=== PATIENT | female | born 1990 ===

== ENCOUNTER 2017-04-05 19:41 | Emergency (ER) | payer MEDICAID, OTHER ==
[~2017-04-05] VITALS: Ht 165.1 cm; Wt 70.0 kg
[2017-04-05 20:00] VITALS: BP 125/72; PULSE 72; RESP 20; O2SAT 99
[2017-04-05 21:04] LABS: BASOPHILS % (AUTO) 0.3 % (0-3); EOSINOPHILS % (AUTO) 1.2 % (0-5); Mean Corpuscular Hemoglobin 26.5 pg (27.0-35.0); Mean Corpuscular Volume 86.8 fL (81-100); Platelet Count 561 bil/L (150-400)
--- NOTE | 2017-04-06 06:30 | PCM.EDPN ---
ED Note Date of Service April 06, 2017 This patient left without being seen a couple hours ago and then came back to the emergency room at our request when her lab results came back. The resident mistakenly did all of the documentation on the previous K number. Please see that chart for full details. Tru Jordan MD April 06, 2017 06:30
== END 2017-04-05 22:40 | disposition left against medical advice (07) ==
LOC: SED 19:41
DX: Z53.20 Procedure and treatment not carried out because of patient's decision for unspecified reasons (principal)

== ENCOUNTER 2017-04-05 23:29 | Emergency (ER) | payer MEDICAID, OTHER ==
[~2017-04-05] VITALS: Ht 165.1 cm; Wt 70.0 kg
[2017-04-05 23:32] VITALS: BP 139/81; PULSE 102; RESP 16; O2SAT 99
[2017-04-06] MEDS ORDERED: 0.9% Sodium Chloride 1,000 ML IV SCH (00:15)
--- NOTE | 2017-04-06 00:32 | ED.REPORT ---
HPI-Fever Date of Service April 06, 2017 ED Provider: Tru Jordan MD Patient is a 26-year-old female with history of delivery [address] Ramos [place], who presented to [facility] Emergency Department complaining of fever and incision site erythema. Patient reports the onset of fever 1 week ago. She presented to [place] emergency department 6 days ago with fever of 100F and incision site swelling and redness. She was diagnosed with hematoma and sent home. A few days later, she went to see her [employer], . He gave her a prescription for Augmentin. She has been taking it twice daily for 2 days now. Patient reports worsening of her symptoms, she states she continues to have fever, pain, swelling and redness of incision site. She denies headache, chest pain, shortness of breath, nausea, vomiting, diarrhea, dysuria, weakness. Nursing Notes Stated Complaint: INCISION PAIN Chief Complaint: General Complaint Nursing Notes Reviewed: Yes Allergies: Coded Allergies: No Known Allergies (Verified Allergy, Unknown, 03/13/15) No Active Prescriptions or Reported Meds General Time Seen by MD: 23:50 Chief Complaint Other (infected incision) Past Medical History Past Medical History No history of diabetes mellitus, hypertension, or CHF Past Surgical History Reports: Smoking History Never Smoker Social History Alcohol Use: Denies alcohol use Drug Use: In recovery Ambulatory Status Independent Review of Systems A comprehensive review of systems has been conducted with the patient and was found to be negative except what is mentioned in the history of present illness. Physical Exam Initial Vital Signs Vital Signs (First) Date Time Temp Pulse Resp B/P Pulse Ox O2 Delivery O2 Flow Rate FiO2 04/05/17 23:32 37.4 102 16 139/81 99 Room Air Initial VS: Reviewed, Vital signs abnormal Head / Eyes: Atraumatic, Normocephalic, PERRL ENT: Mucous membranes moist, Conjunctiva normal, No scleral icterus Extremities: Vascular intact, Neuro intact, No swelling, No tenderness Psychiatric: Mood/affect normal, Behavior normal, Normal thought content General/Constitutional: Awake, Alert, No acute distress, Well appearing, Well developed, Not toxic appearing Neck: Atraumatic, Supple Respiratory / Chest: Breath sounds NL, No rales, No rhonchi, No wheezing Cardiovascular: Heart rate NL, Regular rhythm Heart Rate / Rhythm: Positive: Tachycardia Skin: No rash, Warm, Dry (well perfused) Tenderness/Guarding/Rebound: Positive: Tender diffuse, Tender suprapubic (C- section incisional site with erythema and hematoma measuring about 7 cm) Trauma - General: Positive: Hematoma (at the infected incision site) Interpretation & Diagnostics Lab Results Interpretation Result Diagram: 04/06/17 0040 Test 04/06/17 00:40 04/06/17 01:11 White Blood Count 13.0th/mm3 (3.8-10.1) Red Blood Count 2.75mil/mm3 (3.90-5.20) Hemoglobin 7.4g/dL (12.0-15.6) Hematocrit 23.8% (35.0-46.0) Mean Corpuscular Volume 86.5fL (81-100) Mean Corpuscular Hemoglobin 26.9pg (27.0-35.0) Mean Corpuscular Hemoglobin Concent 31.1% (32.0-37.0) Red Cell Distribution Width 15.8% (12.3-15.4) Platelet Count 586bil/L (150-400) Neutrophils (%) (Auto) 81.4% (40-74) Lymphocytes (%) (Auto) 12.3% (14-46) Monocytes (%) (Auto) 5.0% (4-12) Eosinophils (%) (Auto) 0.8% (0-5) Basophils (%) (Auto) 0.2% (0-3) Lactic Acid Level 0.7mmol/L (0.4-2.0) Body Fluid Source Peritoneal fluid Body Fluid Color Red (Clear) Body Fluid Appearance Turbid Body Fluid WBC 858610/mm3 Body Fluid RBC 5977291/mm3 Body Fluid Polynuclear WBCs 92% Body Fluid Lymphocytes 1% Body Fluid Monocytes 8% Body Fluid Eosinophils 0% Body Fluid Basophils 0% Lab Results Interpretation: Elevated white blood count Re-Eval/Medical Decision Med Decision/Clinical Course In summary this is 26-year-old female status post lower segmental transverse section on 03/24/2017 by [place], who presented to [facility] Emergency Department with fever and infected section incision site. Patient has been seen in emergency department in [place] 1 week ago and diagnosed with hematoma. She has also been seen by Dr. Ramos and was put on Augmentin 2 days ago. Patient continued to have fever and worsening of erythema around incision site. Today patient presents to [facility] ER with temperature 37.4C, heart rate of 102. Blood work is significant for white blood count of 13.9, hemoglobin of 7.6 and hematocrit 24.9. Patient's hemoglobin was 8 on day one. Normal saline, IV started. Tylenol, PO administered. Incisional hematoma drained and sample sent for culture. Blood cultures pending. Zocyn, 3.375 mg IV started. 0530: Dr. Tru Jordan: This patient was discussed with Dr. Perry, who is on- call for Dr. Ramos. The patient will go there by private vehicle and be evaluated in the emergency room by Dr. Perry. COBRA was completed. Patient was discharged in improved condition. Counseled Regarding: Diagnosis, Lab results, Need for follow-up, When/why to return to ED Discharge & Departure Impression: Primary Impression: Wound infection after surgery Encounter type: initial encounter Qualified Code: T81.4XXA - Infection following a procedure, initial encounter Additional Impression: Status post Disposition: Transfer, Acute Care Facility Discharge Condition All VS Reviewed: Yes Condition: Improved Additional Instructions: Go directly from here to [facility]. Dr. Perry will see you there and decide what needs to be done to treat this wound infection. Time is important so do not go home and do not stop along the way. Referrals: Yohan Ramos MD (PCP) EDSupervising Provider for APC: Tru Jordan MD Attending Statement The patient was seen and examined together with Dr. Melva Souza and I agree with the history, exam and plan as outlined in the note above. Melva Souza DO April 06, 2017 00:32 Tru Jordan MD April 06, 2017 05:31
[2017-04-06 00:57] LABS: BASOPHILS % (AUTO) 0.2 % (0-3); EOSINOPHILS % (AUTO) 0.8 % (0-5); Mean Corpuscular Hemoglobin 26.9 pg (27.0-35.0); Mean Corpuscular Volume 86.5 fL (81-100); NEUTROPHILS % (AUTO) 81.4 % (40-74); Platelet Count 586 bil/L (150-400)
[2017-04-06] MEDS ORDERED: HYDROmorphone 0.5 mg/0.5 mL iSecure Syringe IVPUSH ONE (01:55)
[2017-04-06] MEDS ORDERED: Piperacillin-Tazo 3.375 Gm Inj 3.375 GM in Dextrose 5% Minibag Plus 50 ML IV ONE (02:50)
[2017-04-06 03:00] LABS: BFWBC 280000 /mm3
[2017-04-06 03:01] LABS: MONOCYTES,BODY FLUID 8 %; OTHER CELLS,BODY FLUID 0
[2017-04-06 05:57] VITALS: BP 135/62; PULSE 118; RESP 24; O2SAT 100
[2017-04-06] MEDS ORDERED: Acetaminophen IV 1,000 MG in IV Premix 1 EACH IV ONE (06:30)
== END 2017-04-06 05:55 | disposition short-term general hospital (02) ==
LOC: SED 23:29
DX: O86.0 Infection of obstetric surgical wound (principal); Z98.890 Other specified postprocedural states; Y84.8 Other medical procedures as the cause of abnormal reaction of the patient, or of later complication, without mention of misadventure at the time of the procedure; Y92.89 Other specified places as the place of occurrence of the external cause; Y99.8 Other external cause status
CPT/HCPCS: 36415; 83605; 85025; 87040; 87070; 87205; 89051; 96361; 96365; 96375; 99285; J1170; J2543; J7030